=== PATIENT | male | born 1965 | race American Indian/Alaskan Native ===

== ENCOUNTER 2016-08-06 14:11 | Emergency (ER) | payer OTHER ==
[~2016-08-06] VITALS: Ht 172.7 cm; Wt 118.8 kg
[2016-08-06 14:56] VITALS: BP 108/88
[2016-08-06] MEDS ORDERED: OMEP20TC24 PO (14:59)
[2016-08-06] MEDS ORDERED: LISI10TA11 PO (14:59)
--- NOTE | 2016-08-06 17:01 | NUR ---
Patient ambulated to bed 03.
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
--- NOTE | 2016-08-06 17:20 | NUR ---
DR. PETIT EVALUATES PT AT BEDSIDE.
--- NOTE | 2016-08-06 17:50 | NUR ---
Patient discharged with v/s stable. Written and verbal after care instructions given and explained. Patient alert, oriented and verbalized understanding of instructions. Ambulatory with steady gait. All questions addressed prior to discharge. ID band removed. Patient advised to follow up with PMD. Rx of NORCO 5/325 MG TABLET, 1 TO 2 TABS, EVERY 4 HOURS BY MOUTH given. Patient educated on indication of medication including possible reaction and side effects. Opportunity to ask questions provided and answered.
[2016-08-06 18:04] VITALS: BP 97/63
== END 2016-08-06 17:50 | disposition home or self-care (01) ==
LOC: MED 14:11
DX: Z76.0 Encounter for issue of repeat prescription (principal); G89.29 Other chronic pain; M54.5 Low back pain; Z88.6 Allergy status to analgesic agent; Z88.1 Allergy status to other antibiotic agents; Z88.8 Allergy status to other drugs, medicaments and biological substances; Z98.890 Other specified postprocedural states
CPT/HCPCS: 99283